=== PATIENT | male | born 1945 | race Caucasian/White ===

== ENCOUNTER 2017-12-15 21:58 | Emergency (ER) | payer OTHER ==
[~2017-12-15] VITALS: Ht 175.3 cm; Wt 89.8 kg
[~2017-12-15 21:58] MED LIST: VIC
--- NOTE | 2017-12-15 21:58 | NUR ---
[facility] ALS TO ER BED 01
[2017-12-15 22:00] VITALS: BP 129/82
--- NOTE | 2017-12-15 22:00 | NUR ---
PT IS A 72 Y/O MALE BIB ALS WHO PRESENTS TO THE ED FOR DRUG INGESTION. PT STATES THAT HE WAS FEELING BILATERAL LEG CRAMPS EARLIER AND TOOK PT STATES THAT HE TOOK ARNICA DROPS AND 10 TRAMADOL TABS. PT REPORTS 3/10 ACHING BILATERAL LEG PAIN THAT DOES NOT RADIATE. PT DENIES CP, SOB, N/V/D. PT AWAKE AND ALERT, RR EVEN/UNLABORED. PT REPOSITIONED FOR COMFORT, BED IN LOWEST POSITION. ER MD DR. WAGGONER NOTIFIED. WILL CONTINUE TO MONITOR. Hx: cardiac cath, HTN, hypothryroid, chronic back and knee pain, migraines
[2017-12-15] MEDS ORDERED: NACL 0.9% 1,000 ML IV SCH (22:20)
[2017-12-15 22:44] LABS: BASOPHILS # (AUTO) 0.1 K/uL (0.00-0.22); BASOPHILS % (AUTO) 0.7 % (0.0-2.0); EOSINOPHILS % (AUTO) 0.4 % (0.0-4.0); HEMOGLOBIN 16.5 g/dL (12.0-18.0); LYMPHOCYTES # (AUTO) 0.7 K/uL (2.0-11.5); LYMPHOCYTES % (AUTO) 6.6 % (20.5-51.1); MEAN CORPUSCULAR HEMOGLOBIN 33 pg (27-31); MEAN CORPUSCULAR HGB CONC 34 g/dL (33-37); MEAN CORPUSCULAR VOLUME 95.7 fL (80-94); MONOCYTES # (AUTO) 0.9 K/uL (0.8-1.0); NEUTROPHILS % (AUTO) 84.3 % (42.2-75.2); PLATELET COUNT (AUTO) 246 K/uL (140-450); RED BLOOD CELL COUNT(AUTO) 5.01 MIL/uL (4.20-6.10); RED CELL DISTRIBUTION WIDTH 13.4 % (11.6-13.7); WHITE BLOOD COUNT (AUTO) 10.7 K/uL (4.8-10.8)
[2017-12-15 22:57] LABS: ANION GAP 14.8 (8-16); CARBON DIOXIDE 26.2 mmol/L (21-32); CREATININE 2.1 mg/dL (0.7-1.3)
[2017-12-15 23:01] LABS: ALBUMIN 4.4 g/dL (3.4-5.0); TOTAL BILIRUBIN 0.9 mg/dL (0.0-1.0)
--- NOTE | 2017-12-15 23:47 | NUR ---
Patient discharged with v/s stable. Written and verbal after care instructions given and explained. Patient verbalized understanding. Ambulatory with steady gait. All questions addressed prior to discharge. Advised to follow up with PMD. Addendum: 12/15/17 at 2354 by JOE IV removed, catheter intact and site benign. Applied folded 4x4 gauze and tape to stop bleeding.
--- NOTE | 2017-12-15 23:53 | NUR ---
spoke with Leana (sister), pt will be picked up in 20 mins
[2017-12-15 23:54] VITALS: BP 129/75
== END 2017-12-15 23:54 | disposition home or self-care (01) ==
LOC: MED 21:58
DX: T40.4X1A Poisoning by other synthetic narcotics, accidental (unintentional), initial encounter (principal); N28.9 Disorder of kidney and ureter, unspecified; I10 Essential (primary) hypertension; Z88.6 Allergy status to analgesic agent; Z79.899 Other long term (current) drug therapy; Y92.89 Other specified places as the place of occurrence of the external cause
CPT/HCPCS: 36415; 80053; 85025; 99284; J7030